=== PATIENT | male | born 2000 | race Caucasian/White ===

== ENCOUNTER 2021-09-24 17:16 | Emergency (ER) | payer BC ==
[2021-09-24] MEDS ORDERED: EPINEPHRIN0.3 MG/0.3 IJ (17:40)
[2021-09-24] MEDS ORDERED: LEVOCETIRIZINE D5 MG PO (17:41)
[2021-09-24] MEDS ORDERED: ATIVAN0.5 MG PO (17:42)
[2021-09-24] MEDS ORDERED: RITALIN 20 MG (17:43)
[2021-09-24] MEDS ORDERED: PANTOPRAZOLE SO40 MG PO (17:44)
[2021-09-24] MEDS ORDERED: SINGULAIR 110 MG/TAB PO (17:44)
[2021-09-24] MEDS ORDERED: RT ALBUTEROL CC18 GM IH (17:45)
[2021-09-24] MEDS ORDERED: EPIPEN 2-PAK1 MG/ML MR (18:19)
[2021-09-24 18:26] VITALS: BP 142/82
== END 2021-09-24 18:26 | disposition home or self-care (01) ==
LOC: ED 17:16
DX: R06.02 Shortness of breath (principal); T45.0X5A Adverse effect of antiallergic and antiemetic drugs, initial encounter